=== PATIENT | male | born 1960 | race Caucasian/White ===

== ENCOUNTER 2024-03-23 16:00 | Outpatient (CLI) | payer OTHER | END 2024-03-23 16:01 | disposition home or self-care (01) | LOC: SLEEPLAB 16:00 | PROVIDERS: ATTEND Family Medicine | DX: G47.33 Obstructive sleep apnea (adult) (pediatric) (principal); R53.83 Other fatigue; R06.83 Snoring; G47.00 Insomnia, unspecified | CPT/HCPCS: 95800 ==